=== PATIENT | male | born 1995 | race Caucasian/White ===

== ENCOUNTER 2017-12-18 21:56 | Emergency (ER) | payer MEDICAID ==
[~2017-12-18] VITALS: Ht 177.8 cm; Wt 60.0 kg
[2017-12-18] MEDS ORDERED: HYDROcodone/acetaminophen 5mg/325mg tablet PO ONE (23:25)
[2017-12-18] MEDS ORDERED: TETanus/Pertussis (Acell)/Diphther VAC/PF (Tdap-Adult) 0.5ml syringe IM ONE (23:25)
[2017-12-18] MEDS ORDERED: CEPH-571 PO (23:32)
[2017-12-18 23:57] VITALS: BP 135/84
== END 2017-12-18 23:58 | disposition home or self-care (01) ==
LOC: ER 21:57
DX: S91.331A Puncture wound without foreign body, right foot, initial encounter (principal); F12.90 Cannabis use, unspecified, uncomplicated; Z79.2 Long term (current) use of antibiotics; W45.0XXA Nail entering through skin, initial encounter; Y93.89 Activity, other specified; Y92.89 Other specified places as the place of occurrence of the external cause; Y99.8 Other external cause status
CPT/HCPCS: 73630; 90471; 90715; 99284